=== PATIENT | female | born 1960 | race Two or more races ===

== ENCOUNTER → 2021-02-20 10:16 | Outpatient (BNVA) | payer OTHER, SELFPAY | PROVIDERS: PCP Physician Assistant Medical; Visit Provider Internal Medicine Pulmonary Disease | DX: R91.1 Solitary pulmonary nodule (principal) | CPT/HCPCS: 99202 ==

== ENCOUNTER → 2021-04-04 09:08 | Outpatient (BNVA) | payer OTHER, SELFPAY | PROVIDERS: PCP Physician Assistant Medical; Visit Provider Internal Medicine Pulmonary Disease | DX: R91.1 Solitary pulmonary nodule (principal) | CPT/HCPCS: 99212 ==

== ENCOUNTER 2021-04-29 10:59 | Day surgery (SDC) | payer OTHER, SELFPAY ==
[2021-04-29] VITALS (7 sets, daily range): BP systolic 98–103; BP diastolic 37–51; PULSE 59–78; RESP 18; TEMP 36.2; O2SAT 92–96; BMI 30.5
--- NOTE | ~2021-04-29 | XR_ITS ---
EXAMINATION: XR CHEST CLINICAL INFORMATION: Post lung biopsy COMPARISON: Previous outside chest CT 01/30/[address] images from lung biopsy earlier the same day TECHNIQUE: Frontal view of the chest was obtained. FINDINGS: There is new 4 x 5 cm area of airspace disease in the right upper lobe, probably representing postbiopsy hemorrhage. The right upper lobe nodule is obscured. There is minimal linear scarring or subsegmental atelectasis at the left lung base. The lungs are otherwise clear. There is no pneumothorax. There is no pleural effusion. Cardiac and mediastinal contours are unremarkable. Bony structures are unremarkable. XR/XR chest 1V IMPRESSION: New airspace disease in the right upper lobe representing post biopsy hemorrhage measuring 4 x 5 cm. No pneumothorax.
--- NOTE | ~2021-04-29 | CT_ITS ---
PROCEDURE: CT GUIDED BIOPSY, LUNG CLINICAL INFORMATION: Right upper lobe nodule. COMPARISON: Outside chest CT 01/30/2021 TECHNIQUE: Procedure and risks and benefits including bleeding, infection and pneumothorax were discussed with the patient and informed consent was obtained. The patient was positioned in the right decubitus position. Limited axial images through the upper lobe were obtained. The right upper back was prepped and draped in the usual sterile fashion. The skin and soft tissues were anesthetized with 1% lidocaine plain. Using CT guidance and a coaxial system, access to the right upper lobe nodule was obtained. One 20-gauge core biopsy specimen was obtained. There was significant hemorrhage following the biopsy and additional samples were not obtained. The hemorrhage resolved spontaneously. There was no hemoptysis. Specimen from the coaxial needle was sent for cytology specimen as well. The patient received 0.5 mg of Versed and 25 mcg fentanyl intravenously during the procedure. Total sedation time was 30 minutes. Conscious sedation was provided by a registered nurse under my direct supervision with continuous hemodynamic monitoring. This CT examination was performed using dose optimization techniques as appropriate, variously including the following: *Automated exposure control *Adjustment of mA and/or kV according to patient size (this includes techniques or standardized protocols for targeted exams where dose is matched to indication/reason for exam; i.e. extremities or head) *Use of iterative reconstruction technique DLP: 286 mGy-cm FINDINGS: There is a 0.7 x 1.4 cm oval-shaped right upper lobe nodule which was targeted for biopsy. This is similar to 01/30/[address] scan. Postprocedure imaging demonstrates increasing right upper lobe airspace disease surrounding the nodule suggestive of hemorrhage. This obscured the nodule. This remained stable on serial imaging. There is no pneumothorax. CT/CT biopsy lung RT IMPRESSION: CT-guided right upper lobe lung biopsy.
[2021-04-29 11:27] LABS: Basophils Percent Auto 0.6 % (0-2); Eosinophils Absolute Auto 0.2 X10*3/uL (0.0-0.4); Eosinophils Percent Auto 2.7 % (0-4); Hemoglobin 13.4 g/dl (12.0-16.0); Imm Gran Abs Auto 0.02 X10*3/uL (0.00-0.03); Imm Gran Pct Auto 0.3 % (0.0-0.4); Lymphocytes Absolute Auto 2.6 X10*3/uL (1.2-4.9); Lymphocytes Percent Auto 36.8 % (20-40); MANUAL DIFF FLAG SCAN; Mean Corpuscular HGB Conc 32.7 g/dl (31.0-35.0); Mean Corpuscular Hemoglobin 26.9 pg (27.0-33.0); Mean Corpuscular Volume 82.2 fL (80-98); Mean Platelet Volume 10.2 fL (9.4-12.3); Monocytes Absolute Auto 0.6 X10*3/uL (0.1-1.2); Monocytes Percent Auto 8.9 % (2-11); Neutrophils Absolute Auto 3.6 X10*3/uL (2.0-8.3); Neutrophils Percent Auto 50.7 % (45-73); Platelet Count 196 X10*3/uL (160-400); Red Blood Count 4.99 X10*6/uL (4.20-5.50); Red Cell Distribution Width 13.4 % (11.0-16.0); SCAN SMEAR FLAG 1; White Blood Count 7.1 X10*3/uL (4.8-10.8)
[2021-04-29 11:30] LABS: INTERNATIONAL NORM RATIO 1.1 (0.9-1.1); Prothrombin Time 12.5 SEC (9.9-13.0)
[2021-04-29 11:33] LABS: Partial Thromboplastin Time 37.6 SEC (24.1-38.0)
[2021-04-29 11:47] LABS: SLIDE REVIEW VERIFIED
[2021-04-29] MEDS: Lidocaine HCl 1 % MPF 5 ML VIAL 10 ML SUBCUT (14:29)
--- NOTE | 2021-04-29 14:42 | HO.RADPN ---
RADIOLOGY Narrative Narrative: RUL lung biopsy using coaxial system. one 20g core biopsy obtained followed by hemorrhage. additional core biopsies not obtained. cytology specimen from coaxial needle also sent. post chest ct shows some post biopsy hemorrhage and no pneumothorax.
== END 2021-04-29 16:30 | disposition home or self-care (01) ==
PROVIDERS: Visit Provider Radiology Diagnostic Radiology
DX: R91.1 Solitary pulmonary nodule (principal); J95.831 Postprocedural hemorrhage of a respiratory system organ or structure following other procedure
CPT/HCPCS: 32408; 36415; 71045; 85025; 85610; 85730; 88173; 88305; 99152; 99153; J2250; J3010

== ENCOUNTER → 2021-05-15 13:45 | Outpatient (BNVA) | payer OTHER, SELFPAY | PROVIDERS: PCP Internal Medicine; Visit Provider Internal Medicine Pulmonary Disease | DX: R91.1 Solitary pulmonary nodule (principal) | CPT/HCPCS: 99212 ==